=== PATIENT | female | born 1940 | race Caucasian/White ===

== ENCOUNTER 2019-02-21 17:23 | Inpatient (IN) | payer MEDICARE, OTHER ==
[~2019-02-21] VITALS: Ht 165.1 cm; Wt 47.7 kg
[2019-02-21 18:19] LABS: BASOPHILS 0.1 % (0-2); EOSINOPHILS 0.1 % (0-7); HEMATOCRIT 43.6 % (36.0-48.0); HEMOGLOBIN 14.4 g/dL (12-16); IMMATURE GRANULOCYTES 0.2 % (0-5); LYMPHOCYTES 9.1 % (15-50); MCH 31.2 pg (26.0-34.0); MCV 94.6 fL (80.0-100.0); MONOCYTES 5.1 % (2-11); NEUTROPHILS 85.4 % (40-80); PLATELET COUNT 245 10x3/uL (130-400); RBC 4.61 10x6/uL (4.00-5.40); RDW 14.1 % (11.5-14.5); WBC 10.9 10x3/uL (4.8-10.8)
[2019-02-21 18:32] LABS: INR 1.12 (0.85-1.17); PROTIME 13.9 SECONDS (11.6-15.0)
[2019-02-21 18:40] LABS: ALBUMIN 3.4 g/dL (3.4-5.0); ALKALINE PHOSPHATASE 50 U/L (46-116); ALT (SGPT) 20 U/L (10-68); BILIRUBIN - TOTAL 0.68 mg/dL (0.2-1.3); CALC OSMOLALITY 287 mosm/kg (275-300); CALCIUM 8.4 mg/dL (8.5-10.1); CARBON DIOXIDE 30.3 mmol/L (21.0-32.0); CHLORIDE - SERUM 106 mmol/L (98-107); CREATININE - SERUM 0.6 mg/dL (0.6-1.3); GLUCOSE 116 mg/dL (74-106); PROTEIN - SERUM 6.4 g/dL (6.4-8.2); SODIUM 143 mmol/L (136-145); UREA NITROGEN 18 mg/dL (7-18); eGFR NON AFRICAN AMERICAN > 90 mL/min (90-120)
--- NOTE | 2019-02-21 19:47 | NUR ---
RECEIVED CALL FROM ANESTHESTIA THAT HE WAS EN ROUTE AND SURGERY WOULD BE PERFORMED TONIGHT. PATIENT NOT TO FLOOR YET. INSTRUCTED TO CALL ER.
--- NOTE | 2019-02-21 19:58 | NUR ---
PATIENT TO FLOOR. NO CONSENTS SIGNED. NO HIBBA CLEANSE PERFOMRED. WAS ABLE TO OBTAIN CONSENTS. ANESTHESIA CURRENTLY IN ROOM SPEAKING WITH PATIENT AND FAMILY. SPOKE WITH ANESTHESIA THAT HIBBA CLEANSE NOT PERFORMED YET. ANESTHESIA STATING UNDERSTANDING.
--- NOTE | 2019-02-21 20:10 | NUR ---
ADMINISTERED MORPHINE FOR PAIN CONTROL. HIBBA CLEANSE PERFORMED.
--- NOTE | 2019-02-21 20:28 | NUR ---
PRE OP MEDS ADMINISTERED
--- NOTE | 2019-02-21 20:32 | NUR ---
PATIENT LEFT FLOOR WITH SURGERY TEAM
[2019-02-22] VITALS (13 sets, daily range): BP systolic 117–187; BP diastolic 48–75; Ht 165.1 cm; Wt 47.7 kg
--- NOTE | 2019-02-22 00:15 | NUR ---
RECEIVED PATIENT BACK FROM SURGERY. POST OP VITALS ASSESSED AND CURRENTLY STABLE. PATIENT WET. CHANGED BED AND ADDED KRISTYN ALARM. SCD TO THE RIGHT LEG AND PLEXI PULSE TO THE LEFT FOOT. LEFT ARM IS IN SLING. FOREARM/WRIST AREA IS WRAPPED WITH ACD BANDAGE. FINGERS WARM TO TOUCH AND CAPILLARY REFILL LESS THAN 3 SECONDS. LEFT HIP HAS BANDAGE THAT IS CLEAN DRY AND INTACT. PLACED A PUREWICK EXTERNAL CATHETER TO PATIENT. PATIENT STATES PAIN IS TOLERABLE. CURRENTLY ON 3L O2 VIA NASAL CANNULA. INCENTIVE SPIROMETER. WILL EDUCATE PATIENT ON USE WHEN LESS DROWSY. LEFT LOWER EXTREMETY IS WARM TO TOUCH WITH PALPABLE PULSES. CALL LIGHT IN REACH. SLEEPING WHEN LEAVING THE ROOM.
[2019-02-22 06:13] LABS: BASOPHILS 0.1 % (0-2); EOSINOPHILS 0 % (0-7); HEMOGLOBIN 12.7 g/dL (12-16); IMMATURE GRANULOCYTES 0.4 % (0-5); LYMPHOCYTES 4.1 % (15-50); MCH 30.8 pg (26.0-34.0); MCHC 31.8 g/dL (31.0-37.0); MEAN PLATELET VOLUME 10.5 fL (7.4-10.4); MONOCYTES 4.6 % (2-11); NEUTROPHILS 90.8 % (40-80); PLATELET COUNT 219 10x3/uL (130-400); RBC 4.12 10x6/uL (4.00-5.40); RDW 14.3 % (11.5-14.5)
[2019-02-22 06:19] LABS: MCV 97.1 fL (80.0-100.0); WBC 16.9 10x3/uL (4.8-10.8)
[2019-02-22 06:21] LABS: INR 1.13 (0.85-1.17)
[2019-02-22 06:30] LABS: CALC OSMOLALITY 292 mosm/kg (275-300); CALCIUM 7.9 mg/dL (8.5-10.1); CARBON DIOXIDE 29.4 mmol/L (21.0-32.0); CHLORIDE - SERUM 109 mmol/L (98-107); CREATININE - SERUM 0.5 mg/dL (0.6-1.3); GLUCOSE 103 mg/dL (74-106); MAGNESIUM - SERUM 1.7 mg/dL (1.8-2.4); PHOSPHOROUS 3.4 mg/dL (2.5-4.9); POTASSIUM - SERUM 4.3 mmol/L (3.5-5.1); SODIUM 146 mmol/L (136-145); UREA NITROGEN 19 mg/dL (7-18); eGFR NON AFRICAN AMERICAN > 90 mL/min (90-120)
--- NOTE | 2019-02-22 07:37 | OP ---
PATIENT NAME: LYUBOV BARKER MEDICAL RECORD: [id number] :42 LOCATION:D.MS [id number] ADMISSION DATE:02/21/19 SURGEON: ODELL QUEEN DO DATE OF OPERATION: 02/21/2019 PROCEDURE PERFORMED: Left distal radius open reduction internal fixation and left total hip arthroplasty. PREOPERATIVE DIAGNOSIS: Displaced left distal radius fracture, extraarticular and a left displaced femoral neck fracture. POSTOPERATIVE DIAGNOSIS: Displaced left distal radius fracture, extraarticular and a left displaced femoral neck fracture. INDICATIONS: Ms. Barker is a 78-year-old female who fell this morning onto her left side. She fractured femoral neck and her distal radius. She was splinted and taken to our ER transferred from another one. The patient was informed that she had the 2 fractures and informed of the risks and benefits of left total hip and left distal radius ORIF as well as weightbearing status and the risks of infection, bleeding, damage to nerves and vessels, leg length discrepancy, fracture, need for further surgery, blood clots, and even , malunion, nonunion of the distal radius as well and she signed the consent. SURGEON: Odell Qeuen DO DESCRIPTION OF PROCEDURE: The patient received block by anesthesia in the preoperative area, taken to the operative suite, laid in supine position, given general anesthetic and LMA was placed. Two grams Ancef were given to the patient and the left upper extremity was then prepped and draped in sterile fashion and a timeout was performed. Everyone was in agreement with the correct side, site, patient, and procedure. The incision was then made over flexor carpi radialis tendon. Careful dissection was made down to the fracture. Fracture was reduced. A pin was placed from the radial styloid into the radius holding the fracture in place. The Biomet distal radius plate was then placed on and pinned in place. This was confirmed to be in good position on AP and lateral and then distal screws were put in locking screws and then proximally as well in the shaft, 2 of the screws appeared to be a little long and exchanged out, then this tourniquet had been used. The upper extremity was exsanguinated in Esmarch was up for 31 minutes and let down at that time, the bleeding was coagulated. The skin was then irrigated. The wound was irrigated. Skin was closed with 3-0 Vicryl in interrupted fashion. Prineo glue placed on the skin. Adaptic, 4 x 4s, ABD, Webril, and a 3 x 12 volar splint was placed and secured with an Hans wrap. She was then moved down on the [place] table and the left hip was prepped and draped in sterile fashion. The timeout had been performed. The incision began over the tensor fascia ana m. Careful dissection was made down and the fascia was taken superiorly. The muscle belly posteriorly and the interval between the rectus was opened, the ascending branch of lateral femoral circumflex was tied off and coagulated with the Aquamantys and then cut. The capsule was then cleared off and the capsulotomy was performed. The capsule was tagged. The femoral neck was then cut as there was a subcapital fracture. The femoral head was then removed as well as the labrum and the pulvinar and reaming began and reamed up to a 50. Osteotomes cup was then impacted into place and I was very secure as confirmed on AP pelvis x-ray. The liner was then impacted and the femur was then exposed and then broaching. First canal finder was used and the ONOFFMIX (?) cutter and broaching began up to a 10. This was trialled and OPERATIVE REPORT [id number] BRIDGES,LYUBOV need to get a little more lateral and the neck cut was good as well as the size of a -3 neck. We then dislocated the hip and broached a little more lateral. A 13 Taperloc stem was put in high offset with a 28 Biolox ceramic head with a dual mobility and a -3 neck. The hip was then reduced and appeared to be equal lengths on the AP pelvis and no fracture seen in the femoral stem and the femoral shaft rather from the stem. The wound was then thoroughly irrigated. The capsule was then closed with #2 Ethibond that had been tagged. The Surgicel powder, vancomycin and tobramycin powder were then placed in the wound. The tensor fascia ana m fascia was then closed with #1 Vicryl running locking stitch. Skin was closed with 2-0 Vicryl in inverted interrupted fashion, 4-0 Monocryl in the skin and a Prineo placed on the skin and then covered with Telfa and Tegaderm. The patient was then awakened and taken to recovery in stable condition. Blood loss approximately 300 mL. COMPLICATIONS: None. TRANSINT:[id number] Voice Confirmation ID: [id number] DOCUMENT ID: [id number] ODELL QUEEN DO at 0737 CC: [id number] DICTATION DATE: 02/21/19 235 PRODUCT DEVELOPMENT ENGINEER: 02/22/19 0736 ADM IN [facility] [address] [id number]
--- NOTE | 2019-02-22 10:27 | NUR ---
PT RESTING IN CHAIR. NO SIGNS OF DISTRESS. IV TO RIGHT FORARM PATENT NO REDNESS OR TENDERNESS. HAS INCISION TO LEFT HIP DRESSING INTACT AND INCISION TO LEFT WRIST DRESSING INTACT. COMPLAINS OF PAIN. MEDICATIONS GIVEN. DENIES ANY FURTHER NEED AT THIS TIME. CALL LIGHT IN REACH. BED LOW POSITION. FAMILY AT BEDSIDE.
--- NOTE | 2019-02-22 12:41 | NUR ---
REHAB PRESCREEN THIS PATIENT WILL MAKE A GOOD CANIDATE FOR IRF. CURRENTLY POD#1 AND NO THERPAY HAS BEEN STARTED. WILL MONITOR HER PROGRESS AND FOLLOW UP WHEN READY FOR DISCHARGE. THANK YOU FOR THIS EVAL. ZAFAR VARELA LPN CLINICAL LIASION
--- NOTE | 2019-02-22 13:04 | MORECARE ---
CASE MANAGEMENT DISCHARGE SUMMARY PATIENT: LYUBOV BARKER UNIT: [id number] ADM DATE: 02/21/19 AGE: 78 : 41 SEX: F ROOM/BED: D.2233 AUTHOR: GIOVANY,DOC PHYSICIAN: REFERRING PHYSICIAN: BRAYDEN FERRO MD DATE OF SERVICE: 02/22/19 Discharge Plan Patient Name: LYUBOV BARKER Facility: [facility]:[place] : 1940 Planned Disposition: Anticipated Discharge Date: 02/24/19 Discharge Date: Expected LOS: 3 Initial Reviewer: [email or web address] Initial Review Date: 02/21/2019 Generated: 02/22/19 2:04 pm Comments DCP- Discharge Planning Updated by [id number]: Maura Cooley on 02/22/19 12:[address] DC PLAN: Referral Pending with Acute [place] Rehab at . ANTICIPATED DC NEEDS: Rehab CM met with patient to complete initial dc planning assessment. CM educated patient on the CM role and verbal consent given by patient to complete assessment. CM verified patient's address, phone number, and emergency contact phone numbers. Patient lives at home with her . She was independent in her care prior to her fall. At discharge patient would like to go to [place] rehab at or at [facility]. JAMES presented, signed by patient for Acute Rehab at or [facility] and a second choice for [place] if not accepted to [place] rehab. Patient denied further known discharge needs at this time. CM will continue to follow and will assist as needed with dc plans/needs. Maura Cooley RN, [facility] DCPIA - Discharge Planning Initial Assessment Updated by [email or web address]: Maura Cooley on 02/22/19 12:59 pm * Is the patient Alert and Oriented? Yes * How many steps to enter\exit or inside your home? One * PCP Does not have a PCP * Pharmacy [facility] [address] * Preadmission Environment Home with Family * ADLs Independent * Equipment Cane Rolling Walker * List name and contact numbers for known caregivers / representatives who currently or will assist patient after discharge: Jessenia Barker - daughter- [phone] * Verbal permission to speak to the caregivers and representatives has been obtained from the patient. Yes * Community resources currently utilized None * Additional services required to return to the preadmission environment? No * Can the patient safely return to the preadmission environment? Yes * Has this patient been hospitalized within the prior 30 days at any hospital? No Patient Name: LYUBOV BARKER Page [phone] at 1304 All edits/amendments must be made on the electronic document DICTATION DATE: 02/22/19 130 ROTARY FILTER OPERATOR: EMILIANO 02/22/19 1304 RPT#: [id number] DC DATE: STATUS: ADM IN [facility] [address] [place] [address] END OF REPORT
--- NOTE | 2019-02-22 13:14 | NUR ---
LYING IN BED,WITHOUT SIGNS OF DISTRESS
[2019-02-22 17:27] LABS: APPEARANCE CLEAR (CLEAR); BILIRUBIN NEGATIVE (NEGATIVE); COLOR YELLOW (YELLOW); GLUCOSE NEGATIVE (NEGATIVE); KETONE NEGATIVE (NEGATIVE); NITRITE POSITIVE (NEGATIVE); PROTEIN TRACE mg/dL (NEGATIVE); UROBILINOGEN NORMAL (NORMAL)
[2019-02-22 17:29] LABS: BACTERIA MODERATE /hpf (NEGATIVE); RED CELLS - URINE 0-5 /hpf (0-5)
--- NOTE | 2019-02-22 20:00 | NUR ---
A/O WITH NO SIGNS OF ACUTE DISTRESS. DRESSING TO THE LEFT HAND AND HIP. EXTREMETIES WARM WITH PULSE NOTED. WAS NOTIFIED AT CHANGE OF SHIFT TO PLACE SAHU. IV TO THE RT FOREARM WITH NO REDNESS OR SWELLING NOTED. DENIES ANY NEEDS AT THIS TIME. CONTINUE WITH PLAN OF CARE.
[2019-02-23] VITALS: BP 152/67
--- NOTE | 2019-02-23 02:11 | NUR ---
ATTEMPED TO PLACE SAHU X6 ALL THROUGHOUT NIGNT. CALLED ICU FOR SAHU PLACEMENT. ICU NURSE PLACED SAHU UPON FIRST ATTEMPT. REMOVED 820 ML OF URINE. WILL CONTINUE TO MONITOR.
[2019-02-23 04:00] VITALS: BP 143/68
[2019-02-23 06:02] LABS: BASOPHILS 0.1 % (0-2); EOSINOPHILS 0.2 % (0-7); HEMATOCRIT 35.7 % (36.0-48.0); HEMOGLOBIN 11.6 g/dL (12-16); IMMATURE GRANULOCYTES 0.2 % (0-5); LYMPHOCYTES 11.8 % (15-50); MCH 30.5 pg (26.0-34.0); MCHC 32.5 g/dL (31.0-37.0); MEAN PLATELET VOLUME 10.6 fL (7.4-10.4); MONOCYTES 6.7 % (2-11); PLATELET COUNT 226 10x3/uL (130-400)
[2019-02-23 06:03] LABS: MCV 93.9 fL (80.0-100.0); WBC 9.1 10x3/uL (4.8-10.8)
[2019-02-23 06:14] LABS: CHLORIDE - SERUM 102 mmol/L (98-107); CREATININE - SERUM 0.5 mg/dL (0.6-1.3); GLUCOSE 102 mg/dL (74-106); SODIUM 137 mmol/L (136-145); eGFR NON AFRICAN AMERICAN > 90 mL/min (90-120)
[2019-02-23 06:16] LABS: CALC OSMOLALITY 272 mosm/kg (275-300); POTASSIUM - SERUM 3.4 mmol/L (3.5-5.1); UREA NITROGEN 9 mg/dL (7-18)
[2019-02-23 07:59] VITALS: BP 117/64
--- NOTE | 2019-02-23 08:00 | NUR ---
LYING IN BED,WITHOUT NEEDS
[2019-02-23 14:17] VITALS: BP 120/68; BP 121/69
--- NOTE | 2019-02-23 15:38 | NUR ---
PT RESTING IN BED. NO SIGNS OF DISTRESS. IV TO RIGHT HAND PATENT NO REDNESS OR TENDERNESS. HAS INCISION TO LEFT HIP AND LEFT WRIST. DRESSING CLEAN AND INTACT. DENIES ANY FURTHER NEED AT THIS ITME. CALL LIGHT IN REACH. BED LOW POSITION. FAMILY AT BEDSIDE.
--- NOTE | 2019-02-23 19:30 | NUR ---
PATIENT ALERT AND ORIENTED. HOB ELEVATED TO 45 DEGREE ANGLE AT THIS TIME. PATIENT REQUESTED BOOST IN BED AND READJUSTMENT. ASSISTED PATIENT. LEFT HIP DRESSING REMAINS CLEAN, DRY, AND INTACT. PATIENT HAD ICE PACK ON DRESSING BUT STATES SHE NO LONGER NEEDS IT AT THIS TIME. REMOVED AND DISPOSED OF. PATIENT ALSO HAS AIDA BANDAGE TO THE LEFT WRIST THAT IS CLEAN DRY AND INTACT. NO SLING ON AT THIS TIME. PATIENT STATES PAIN IS MINIMAL AND DENIES PAIN MEDICINE AT THIS TIME. PATIENT HAS A PLEXI PULSE TO THE LEFT FOOT AND AN SCD TO THE LEFT LEG. CURRENTLY HAS A RIGHT HAND IV THAT IS PATENT AND INFUSING HALF NORMAL SALINE AT 50. PATIENT IS CURRENTLY WEARING 2L VIA NASAL CANNULA. DENIES FURTHER NEEDS AT THIS TIME. CALL LIGHT IN REACH OF PATIENT. CPOC.
[2019-02-23 20:00] VITALS: BP 142/61
[2019-02-24] VITALS: BP 128/55
--- NOTE | 2019-02-24 03:41 | NUR ---
I have reviewed this patient and I concur with the Shift Assessment completed by the Licensed Practical Nurse today this shift.
[2019-02-24 04:00] VITALS: BP 130/59
[2019-02-24 05:34] LABS: BASOPHILS 0.1 % (0-2); EOSINOPHILS 0.7 % (0-7); HEMATOCRIT 32.9 % (36.0-48.0); HEMOGLOBIN 10.6 g/dL (12-16); IMMATURE GRANULOCYTES 0.1 % (0-5); LYMPHOCYTES 13.9 % (15-50); MCH 30.3 pg (26.0-34.0); MCHC 32.2 g/dL (31.0-37.0); MEAN PLATELET VOLUME 11.2 fL (7.4-10.4); MONOCYTES 7.3 % (2-11); NEUTROPHILS 77.9 % (40-80); PLATELET COUNT 229 10x3/uL (130-400); RDW 13.7 % (11.5-14.5)
[2019-02-24 06:00] LABS: CALC OSMOLALITY 275 mosm/kg (275-300); CALCIUM 8.4 mg/dL (8.5-10.1); CARBON DIOXIDE 30.7 mmol/L (21.0-32.0); CHLORIDE - SERUM 103 mmol/L (98-107); CREATININE - SERUM 0.4 mg/dL (0.6-1.3); GLUCOSE 95 mg/dL (74-106); POTASSIUM - SERUM 3.7 mmol/L (3.5-5.1); SODIUM 139 mmol/L (136-145); UREA NITROGEN 7 mg/dL (7-18); eGFR NON AFRICAN AMERICAN > 90 mL/min (90-120)
--- NOTE | 2019-02-24 07:43 | NUR ---
RESTING IN BED WITH EYES OPEN, ALERT AND ORIENTED W/ NO S/S OF DISTRESS NOTED AT THIS TIME. IV LOCATED TO RIGHT HAND CURRENTLY RUNNING 1/2NS @ 50ML/HR. CURRENTLY RCVING 2L VIA NC. SAHU CATHETER PRESENT PUTTING OUR CLEAR YELLOW URINE. DENIES NEEDS, WILL CONT TO MONITOR.
[2019-02-24 08:36] VITALS: BP 140/69
[2019-02-24] MEDS ORDERED: ELIQUIS2.5 MG PO (10:28)
[2019-02-24] MEDS ORDERED: HYDROCODON-ACE1 EAC7 PO (10:28)
[2019-02-24] MEDS ORDERED: ACETAMINOPHEN325 MG PO (10:28)
[2019-02-24] MEDS ORDERED: Senokot-S Tablet PO (10:28)
[2019-02-24] MEDS ORDERED: ROCEPHIN 1 GM/D51 G1 IV (10:28)
[2019-02-24] MEDS ORDERED: HYDROCODON-ACE1 EA10 PO (10:28)
[2019-02-24] MEDS ORDERED: FLORAJEN3 CAPS460 MG PO (10:28)
[2019-02-24] MEDS ORDERED: PROTONIX40 MG PO (10:29)
--- NOTE | 2019-02-24 10:46 | MORECARE ---
CASE MANAGEMENT DISCHARGE SUMMARY PATIENT: LYUBOV BARKER UNIT: [id number] ADM DATE: 02/21/19 AGE: 78 : 41 SEX: F ROOM/BED: D.2233 AUTHOR: GIOVANYDOC PHYSICIAN: REFERRING PHYSICIAN: BRAYDEN FERRO MD DATE OF SERVICE: 02/24/19 Discharge Plan Patient Name: LYUBOV BARKER Facility: [facility]:[place] : 1940 Planned Disposition: Anticipated Discharge Date: 02/24/19 Discharge Date: Expected LOS: 3 Initial Reviewer: [email or web address] Initial Review Date: 02/21/2019 Generated: 02/24/19 11:45 am Comments DCP- Discharge Planning Updated by [email or web address]: Mary Arnold on 02/24/19 9:[address] Patient Name: LYUBOV BARKER Encounter No: [id number] : 1940 Primary Insurance: MEDICARE A & B Anticipated DC Date: 02-24-2019 Planned Disposition: External Planned Provider: : DCP follow-up note: Patient and family in agreement with discharge plan. No changes to plan. Agrees to discharge today to inpatient rehab at [facility]. Case management will follow and assist as needed. Mary Arnold DCP- Discharge Planning Updated by [email or web address]: Maura Cooley on 02/22/19 12:[address] DC PLAN: Referral Pending with Acute [place] Rehab at . ANTICIPATED DC NEEDS: Rehab CM met with patient to complete initial dc planning assessment. CM educated patient on the CM role and verbal consent given by patient to complete assessment. CM verified patient's address, phone number, and emergency contact phone numbers. Patient lives at home with her . She was independent in her care prior to her fall. At discharge patient would like to go to [place] rehab at or at [facility]. JAMES presented, signed by patient for Acute Rehab at or [facility] and a second choice for [place] if not accepted to [place] rehab. Patient denied further known discharge needs at this time. CM will continue to follow and will assist as needed with dc plans/needs. Maura Cooley RN, [facility] DCPIA - Discharge Planning Initial Assessment Updated by [email or web address]: Maura Cooley on 02/22/19 12:59 pm * Is the patient Alert and Oriented? Yes * How many steps to enter\exit or inside your home? One * PCP Does not have a PCP * Pharmacy [facility] [address] * Preadmission Environment Home with Family * ADLs Independent * Equipment Cane Rolling Walker * List name and contact numbers for known caregivers / representatives who currently or will assist patient after discharge: Jessenia Barker - daughter- [phone] * Verbal permission to speak to the caregivers and representatives has been obtained from the patient. Yes * Community resources currently utilized None * Additional services required to return to the preadmission environment? No * Can the patient safely return to the preadmission environment? Yes * Has this patient been hospitalized within the prior 30 days at any hospital? No Last DP export: 02/22/19 12:04 Patient Name: LYUBOV BARKER Page [phone] at 1046 All edits/amendments must be made on the electronic document DICTATION DATE: 02/24/191044 BALANCE BRIDGE ASSEMBLER: EMILIANO 02/24/191044 RPT#: [id number] DC DATE: STATUS: ADM IN [facility] [address] [place] [address] END OF REPORT
--- NOTE | 2019-02-24 11:12 | NUR ---
DRESSING CHANGED TO LEFT HIP.
--- NOTE | 2019-02-25 15:31 | MORECARE ---
CASE MANAGEMENT DISCHARGE SUMMARY PATIENT: LYUBOV BARKER UNIT: [id number] ADM DATE: 02/21/19 AGE: 79 : 41 SEX: F ROOM/BED: D.2233 AUTHOR: GIOVANY,DOC PHYSICIAN: REFERRING PHYSICIAN: BRAYDEN FERRO MD DATE OF SERVICE: 02/25/19 Discharge Plan Patient Name: LYUBOV BARKER Facility: [facility]:[place] : 1940 Planned Disposition: Anticipated Discharge Date: 02/24/19 Discharge Date: 02/24/2019 Expected LOS: 3 Initial Reviewer: [email or web address] Initial Review Date: 02/21/2019 Generated: 02/25/19 4:30 pm Comments DCP- Discharge Planning Updated by [email or web address]: Mary Arnold on 02/24/19 9:[address] Patient Name: LYUBOV BARKER Encounter No: [id number] : 1940 Primary Insurance: MEDICARE A & B Anticipated DC Date: 02-24-2019 Planned Disposition: External Planned Provider: : DCP follow-up note: Patient and family in agreement with discharge plan. No changes to plan. Agrees to discharge today to inpatient rehab at [facility]. Case management will follow and assist as needed. Mary Arnold DCP- Discharge Planning Updated by [email or web address]: Maura Cooley on 02/22/19 12:[address] DC PLAN: Referral Pending with Acute [place] Rehab at . ANTICIPATED DC NEEDS: Rehab CM met with patient to complete initial dc planning assessment. CM educated patient on the CM role and verbal consent given by patient to complete assessment. CM verified patient's address, phone number, and emergency contact phone numbers. Patient lives at home with her . She was independent in her care prior to her fall. At discharge patient would like to go to [place] rehab at or at [facility]. JAMES presented, signed by patient for Acute Rehab at or [facility] and a second choice for [place] if not accepted to [place] rehab. Patient denied further known discharge needs at this time. CM will continue to follow and will assist as needed with dc plans/needs. Maura Cooley RN, [facility] DCPIA - Discharge Planning Initial Assessment Updated by [email or web address]: Maura Cooley on 02/22/19 12:59 pm * Is the patient Alert and Oriented? Yes * How many steps to enter\exit or inside your home? One * PCP Does not have a PCP * Pharmacy [facility] [address] * Preadmission Environment Home with Family * ADLs Independent * Equipment Cane Rolling Walker * List name and contact numbers for known caregivers / representatives who currently or will assist patient after discharge: Jessenia Barker - daughter- [phone] * Verbal permission to speak to the caregivers and representatives has been obtained from the patient. Yes * Community resources currently utilized None * Additional services required to return to the preadmission environment? No * Can the patient safely return to the preadmission environment? Yes * Has this patient been hospitalized within the prior 30 days at any hospital? No Last DP export: 02/24/19 9:45 Patient Name: LYUBOV BARKER Page [phone] at 1531 All edits/amendments must be made on the electronic document DICTATION DATE: 02/25/191529 SIEBEL CRM DEVELOPER: EMILIANO 02/25/191529 RPT#: [id number] DC DATE:02/24/19 STATUS: DIS IN [facility] [address] [place] [address] END OF REPORT
== END 2019-02-24 16:16 | DRG 469 ==
LOC: D.ER 17:23 → D.MS 19:15
PROVIDERS: Family Medicine; Orthopaedic Surgery; ADMIT Internal Medicine Nephrology; ATTEND Internal Medicine Nephrology
PROC: 0PSJ04Z Reposition Left Radius with Internal Fixation Device, Open Approach (ICD-10-PCS; principal; 2019-02-21 20:30)
PROC: 0SRB0J9 Replacement of Left Hip Joint with Synthetic Substitute, Cemented, Open Approach (ICD-10-PCS; 2019-02-21 20:30)
DX: S52.552A Other extraarticular fracture of lower end of left radius, initial encounter for closed fracture (principal); S72.002A Fracture of unspecified part of neck of left femur, initial encounter for closed fracture; N39.0 Urinary tract infection, site not specified; W19.XXXA Unspecified fall, initial encounter; Y92.009 Unspecified place in unspecified non-institutional (private) residence as the place of occurrence of the external cause; E83.42 Hypomagnesemia

== ENCOUNTER 2019-02-24 15:48 | Inpatient (IN) | payer MEDICARE, OTHER ==
[~2019-02-24] VITALS: Ht 165.1 cm; Wt 47.6 kg
[~2019-02-24 15:48] MED LIST: ACETAMINOPHEN325 MG PO; ELIQUIS2.5 MG PO; FLORAJEN3 CAPS460 MG PO; HYDROCODON-ACE1 EA10 PO; HYDROCODON-ACE1 EAC7 PO; PROTONIX40 MG PO; ROCEPHIN 1 GM/D51 G1 IV; Senokot-S Tablet PO
[2019-02-24 16:30] VITALS: BP 128/58; BMI 17.5
--- NOTE | 2019-02-24 19:49 | NUR ---
PATIENT RECEIVED SITTING UP IN BED WATCHING TV. ASSESSMENT & VITAL SIGNS DONE. NO C/O PAIN OR DISTRESS. BED LOW. CALL LIGHT WITHIN REACH. WILL CONTINUE TO MONITOR.
[2019-02-24 20:47] VITALS: BP 128/58
--- NOTE | 2019-02-24 20:48 | NUR ---
PATIENT C/O LEFT HIP PAIN LEVEL 3. PATIENT GIVEN PAIN MEDICATION PER ORDER. CALL LIGHT WITHIN REACH. WILL CONTINUE TO MONITOR.
--- NOTE | 2019-02-24 21:53 | NUR ---
PATIENT PAIN LEVEL O. PAIN MEDICATION EFFECTIVE.
--- NOTE | 2019-02-25 02:32 | NUR ---
PATIENT AWAKE. RESPIRATIONS 18 & EVEN. NO PAIN OR DISTRESS AT THIS TIME. BED LOW. ALARM ON. CALL LIGHT WITHIN REACH. SAHU CATHETER CLAMPED & UNCLAMPED PER PROTOCOL CONTINUES. PATIENT TOLERATING IT WELL. BED LOW. WILL CONTINUE TO MONITOR.
--- NOTE | 2019-02-25 03:32 | NUR ---
I have reviewed this patient and I concur with the Shift Assessment completed by the Licensed Practical Nurse today this shift.
--- NOTE | 2019-02-25 06:35 | NUR ---
PATIENT SAHU BAG EMPTIED OF 1000 ML. SAHU THEN REMOVED. PATIENT RELIEVED IT WAS OUT. TOLERATED REMOVAL WELL. CALL LIGHT WITHIN REACH. WILL CONTINUE TO MONITOR.
--- NOTE | 2019-02-25 08:00 | NUR ---
SHIFT ASSMT COMPLETED
[2019-02-25 08:22] VITALS: BP 133/57
[2019-02-25 14:07] VITALS: Ht 165.1 cm; Wt 47.6 kg
--- NOTE | 2019-02-25 16:00 | NUR ---
WILL CONT TO MONITOR
--- NOTE | 2019-02-25 20:00 | NUR ---
PATIENT RECEIVED SITTING UP IN BED WATCHING TV. ASSESSMENT & VITAL SIGNS DONE. BED LOW. CALL LIGHT WITHIN REACH. ALARM ON. WILL CONTINUE TO MONITOR.
[2019-02-25 20:37] VITALS: BP 107/51
--- NOTE | 2019-02-26 02:14 | NUR ---
I have reviewed this patient and I concur with the Shift Assessment completed by the Licensed Practical Nurse today this shift.
[2019-02-26 06:56] LABS: BASOPHILS 0.1 % (0-2); EOSINOPHILS 1.2 % (0-7); HEMATOCRIT 32.5 % (36.0-48.0); HEMOGLOBIN 10.5 g/dL (12-16); IMMATURE GRANULOCYTES 0.1 % (0-5); LYMPHOCYTES 14.1 % (15-50); MCH 30.2 pg (26.0-34.0); MCHC 32.3 g/dL (31.0-37.0); MCV 93.4 fL (80.0-100.0); MEAN PLATELET VOLUME 10.1 fL (7.4-10.4); MONOCYTES 10.3 % (2-11); NEUTROPHILS 74.2 % (40-80); RBC 3.48 10x6/uL (4.00-5.40); RDW 13.6 % (11.5-14.5); WBC 6.9 10x3/uL (4.8-10.8)
[2019-02-26 07:03] LABS: PLATELET COUNT 277 10x3/uL (130-400)
[2019-02-26 07:05] LABS: CALC OSMOLALITY 281 mosm/kg (275-300); CALCIUM 8.7 mg/dL (8.5-10.1); CARBON DIOXIDE 35.4 mmol/L (21.0-32.0); CHLORIDE - SERUM 100 mmol/L (98-107); CREATININE - SERUM 0.5 mg/dL (0.6-1.3); GLUCOSE 106 mg/dL (74-106); POTASSIUM - SERUM 3.4 mmol/L (3.5-5.1); SODIUM 140 mmol/L (136-145); UREA NITROGEN 20 mg/dL (7-18); eGFR NON AFRICAN AMERICAN > 90 mL/min (90-120)
[2019-02-26 07:49] VITALS: BP 108/54
--- NOTE | 2019-02-26 16:35 | NUR ---
PATIENT IS ADMITTED TO REHAB FROM ACUTE FLOOR. AT THIS TIME SHE HAS NO PCP. SHE HAS A ROLLING WALKER AT HOME. PATIENT IS NEW TO THE UNIT AND WILL BE RA AT NEXT MEETING. HER SPOUSE ATTENDED CARE TEAM TODAY. HIS QUESTIONS AND CONCERNS WERE ADDRESSED. WILL CONTINUE TO FOLLOW WITH PATIENT.
--- NOTE | 2019-02-26 19:59 | NUR ---
PATIENT SITTING UP IN BED. ASSESSMENT & VITAL SIGNS DONE. NO C/O PAIN OR DISTRESS. BED LOW. CALL LIGHT WITHIN REACH. WILL CONTINUE TO MONITOR.
[2019-02-26 21:13] VITALS: BP 126/52
--- NOTE | 2019-02-27 02:15 | NUR ---
I have reviewed this patient and I concur with the Shift Assessment completed by the Licensed Practical Nurse today this shift.
--- NOTE | 2019-02-27 03:42 | NUR ---
PATIENT EYES CLOSED. RESPIRATIONS 18 & EVEN. BED LOW. ALARM ON. CALL LIGHT WITHIN REACH. WILL CONTINUE TO MONITOR.
--- NOTE | 2019-02-27 08:24 | NUR ---
NUTRITION F/U CHART REVIEWED, PT VISIT. PT REPORTS IMPROVING PO INTAKE. WILL PROVIDE PT WITH ADDITIONAL OPTIONS FOR MEALS. MONITOR PO INTAKE. RD FOLLOWING
[2019-02-27 09:58] VITALS: BP 127/62
--- NOTE | 2019-02-27 16:25 | NUR ---
PT RESTING IN BED WITH EYES OPEN CALL LIGHT IN REACH WILL MONITER
--- NOTE | 2019-02-27 16:29 | NUR ---
I have reviewed this patient and I concur with the Shift Assessment completed by the Licensed Practical Nurse today this shift.
--- NOTE | 2019-02-27 17:15 | NUR ---
PT RESTING IN BED WITH EYES OPEN CALL LIGHT IN REACH WILL MONITER
--- NOTE | 2019-02-27 19:10 | NUR ---
GREETED PATIENT AND INTRODUCED MYSELF HER NURSE. PATIENT IS LAYING IN BED WATCHING TV AT THIS TIME. RESPIRATIONS EVEN. NO S/S OF DISTRESS. STATES THAT PAIN IS 1/10 ON LEFT LEG. DENIES NO FURTHER NEEDS AT THIS TIME. CALL LIGHT IN REACH.
[2019-02-27 19:40] VITALS: BP 132/61
--- NOTE | 2019-02-28 00:47 | NUR ---
PT. RESTING QUIETLY WITH EYES CLOSED. RESPIRATIONS EVEN. NO S/S OF DISTRESS. SR UP X 2. BED IN LOWEST POSITION. CALL LIGHT IN REACH.
[2019-02-28 06:01] LABS: BASOPHILS 0.2 % (0-2); EOSINOPHILS 2.1 % (0-7); HEMATOCRIT 34.6 % (36.0-48.0); HEMOGLOBIN 11.2 g/dL (12-16); IMMATURE GRANULOCYTES 0.5 % (0-5); LYMPHOCYTES 27.2 % (15-50); MCH 30.4 pg (26.0-34.0); MCHC 32.4 g/dL (31.0-37.0); MCV 93.8 fL (80.0-100.0); MEAN PLATELET VOLUME 10.2 fL (7.4-10.4); MONOCYTES 10.5 % (2-11); NEUTROPHILS 59.5 % (40-80); RBC 3.69 10x6/uL (4.00-5.40); RDW 13.6 % (11.5-14.5); WBC 6.3 10x3/uL (4.8-10.8)
[2019-02-28 06:19] LABS: CALC OSMOLALITY 279 mosm/kg (275-300); CALCIUM 8.8 mg/dL (8.5-10.1); CARBON DIOXIDE 36.3 mmol/L (21.0-32.0); CHLORIDE - SERUM 100 mmol/L (98-107); CREATININE - SERUM 0.5 mg/dL (0.6-1.3); GLUCOSE 95 mg/dL (74-106); SODIUM 140 mmol/L (136-145); UREA NITROGEN 16 mg/dL (7-18); eGFR NON AFRICAN AMERICAN > 90 mL/min (90-120)
[2019-02-28 06:21] LABS: POTASSIUM - SERUM 4.5 mmol/L (3.5-5.1)
[2019-02-28 06:30] LABS: PLATELET COUNT 392 10x3/uL (130-400)
[2019-02-28 08:00] VITALS: BP 126/63
--- NOTE | 2019-02-28 08:00 | NUR ---
PATIENT IS ALERT/ORIENT. CALL LIGHT WITHIN REACH. VOICES NO NEEDS AT THIS TIME. WILL CONTINUE WITH PLAN OF CARE
--- NOTE | 2019-02-28 08:38 | NUR ---
PATIENT REQUEST PRN PAIN MEDIATION BEFORE SHE GOES TO THERAPY FOR LEFT WRIST PAIN. GIVEN
--- NOTE | 2019-02-28 11:48 | NUR ---
PATIENT IN REHAB ROOM. WORKING WITH PHYSICAL THERAPIST. DENIES ANY PAIN/DISC AT THIS TIME.
[2019-02-28 19:46] VITALS: BP 133/61
--- NOTE | 2019-02-28 19:52 | NUR ---
PT IS RESTING IN BED WITH EYES OPEN. ALERT AND ORIENTED X 3. DENIES ACUTE PAIN OR DISCOMFORT AT THIS TIME. NO NEEDS VOICED. PT IS FRIENDLY AND COOPERATIVE WITH STAFF. SPLINT TO LEFT WRIST IS CDI. RIGHT HAND SALINE LOCK IS INTACT. NO REDNESS OR EDEMA NOTED AT THE INSERTION SITE. SR'S ARE UP X 2 IN BED. CALL LIGHT AND BEDSIDE TABLE ARE WITHIN EASY REACH.
--- NOTE | 2019-02-28 21:37 | NUR ---
PT VOICED COMPLAINT OF LEFT ELBOW PAIN LEVEL OF 6. MEDICATED PER MAR.
--- NOTE | 2019-03-01 00:10 | NUR ---
I have reviewed this patient and I concur with the Shift Assessment completed by the Licensed Practical Nurse today this shift.
--- NOTE | 2019-03-01 01:39 | NUR ---
PT ASSISTED TO THE BATHROOM WITH MIN ASSIST. NO FURTHER NEEDS VOICED.
--- NOTE | 2019-03-01 04:35 | NUR ---
PT ASSISTED TO THE BATHROOM. VOIDED WITHOUT DIFFICULTY. STOPPED AT THE SINK TO BRUSH HER TEETH INDEPENDENTLY, THEN BACK TO BED.
--- NOTE | 2019-03-01 09:10 | NUR ---
PT AM MEDS ADMINISTERED. PT DENIES NEEDS. WCTM.
[2019-03-01 19:45] VITALS: BP 126/66
--- NOTE | 2019-03-01 19:47 | NUR ---
PT IS RESTING IN BED WITH EYES OPEN. ALERT AND ORIENTED X 3. DENIES ANY PAIN OR DISCOMFORT. SHE STATES SHE WORKED HARD TODAY, BUT HAS HAD NO PAIN AT ALL. SOFT SPLINT INTACT TO LEFT WRIST. SR'S ARE UP X 2 IN BED. CALL LIGHT AND BEDSIDE TABLE ARE WITHIN EASY REACH.
--- NOTE | 2019-03-01 21:51 | NUR ---
PT RESTING IN BED WITH EYES OPEN. NO ACUTE DISTRESS NOTED.
--- NOTE | 2019-03-01 23:10 | NUR ---
I have reviewed this patient and I concur with the Shift Assessment completed by the Licensed Practical Nurse today this shift.
--- NOTE | 2019-03-02 01:08 | NUR ---
RESTING IN BED WITH EYES CLOSED. NO DISTRESS NOTED.
--- NOTE | 2019-03-02 06:05 | NUR ---
PT LYING AWAKE IN BED. NO NEEDS VOICED. TOLERATED AM MED WITHOUT DIFFICULTY.
[2019-03-02 08:00] VITALS: BP 119/50
--- NOTE | 2019-03-02 08:00 | NUR ---
SHIFT ASSMT COMPLETED.BREAKFAST TRAY GIVEN.CONTAINERS OPENED.
--- NOTE | 2019-03-02 12:00 | NUR ---
EATING LUNCH. VISITING.
[2019-03-02 19:26] VITALS: BP 97/55
--- NOTE | 2019-03-02 19:26 | NUR ---
GREETED PATIENT AND INTRODUCED MYSELF HER NURSE. PATIENT IS LAYING IN BED WATCHING TV AT THIS TIME. RESPIRATIONS EVEN. NO S/S OF DISTRESS. STATES THAT PAIN LEVEL IS 2/1O LEFT THIGH. DENIES ANY FURTHER NEEDS AT THIS TIME. CALL LIGHT IN REACH.
--- NOTE | 2019-03-03 01:03 | NUR ---
PT. RESTING QUIETLY WITH EYES CLOSED. RESPIRATIONS EVEN. NO S/S OF DISTRESS. SR UP X 2. BED IN LOWEST POSITION. CALL LIGHT IN REACH.
[2019-03-03 07:12] LABS: BASOPHILS 0.2 % (0-2); EOSINOPHILS 1.6 % (0-7); HEMATOCRIT 33.4 % (36.0-48.0); HEMOGLOBIN 10.9 g/dL (12-16); IMMATURE GRANULOCYTES 0.2 % (0-5); LYMPHOCYTES 27.9 % (15-50); MCH 30.5 pg (26.0-34.0); MCHC 32.6 g/dL (31.0-37.0); MCV 93.6 fL (80.0-100.0); MEAN PLATELET VOLUME 10.3 fL (7.4-10.4); MONOCYTES 7.7 % (2-11); NEUTROPHILS 62.4 % (40-80); RBC 3.57 10x6/uL (4.00-5.40); RDW 13.9 % (11.5-14.5)
[2019-03-03 07:20] LABS: PLATELET COUNT 506 10x3/uL (130-400)
[2019-03-03 07:46] LABS: CALC OSMOLALITY 278 mosm/kg (275-300); CALCIUM 8.8 mg/dL (8.5-10.1); CARBON DIOXIDE 32.2 mmol/L (21.0-32.0); CHLORIDE - SERUM 101 mmol/L (98-107); CREATININE - SERUM 0.6 mg/dL (0.6-1.3); GLUCOSE 105 mg/dL (74-106); POTASSIUM - SERUM 3.9 mmol/L (3.5-5.1); SODIUM 138 mmol/L (136-145); UREA NITROGEN 22 mg/dL (7-18); eGFR NON AFRICAN AMERICAN > 90 mL/min (90-120)
[2019-03-03 08:03] VITALS: BP 125/61
--- NOTE | 2019-03-03 11:58 | NUR ---
SITTING UP IN BED WAITING ON LUNCH. HAS BEEN WORKING WITH THERAPY TODAY. LUE HAS ROM TO SHOULDER. CAP REFILL < 3 SECONDS. CALL LIGHT IN REACH
--- NOTE | 2019-03-03 19:39 | NUR ---
PT IS RESTING IN BED WITH EYES OPEN. ALERT AND ORIENTED X 3. DENIES ANY PAIN OR DISCOMFORT AT THIS TIME. NO NEEDS VOICED. SHE STATED DR CHIU HAD SAID HE WAS GOING TO CHANGE HER SPLINT, BUT DID NOT. I ASSURED HER I WOULD CHECK ON THIS. VSS. SR'S ARE UP X 2 IN BED. CALL LIGHT AND BEDSIDE TABLE ARE WITHIN EASY REACH.
[2019-03-03 21:02] VITALS: BP 113/49
--- NOTE | 2019-03-03 22:03 | NUR ---
PT ASSISTED TO THE BATHROOM WITH MIN ASSIST. VOICED COMPLAINT OF LEFT HIP PAIN WITH A PAIN LEVEL OF 7. MEDICATED PER JUL.
--- NOTE | 2019-03-03 23:20 | NUR ---
QUIET HOURS. PT LYING IN BED HOB 30 DEGREES EYES CLOSED RESTING QUIETLY. CL IN REACH
--- NOTE | 2019-03-04 02:14 | NUR ---
RESTING QUIETLY IN BED WITH EYES CLOSED. RESPS ARE EVEN AND UNLABORED. NO ACUTE DISTRESS NOTED.
--- NOTE | 2019-03-04 03:29 | NUR ---
I have reviewed this patient and I concur with the Shift Assessment completed by the Licensed Practical Nurse today this shift.
[2019-03-04 07:57] VITALS: BP 131/56
--- NOTE | 2019-03-04 12:33 | NUR ---
AN ORDER FOR A PLATFORM WALKER HAS BEEN FAXED TO [facility].
[2019-03-04 20:56] VITALS: BP 122/62
--- NOTE | 2019-03-04 21:21 | NUR ---
PT RESTING IN BED. ALERT AND ORIENTED. NO SIGNS OF DISTRESS. BREATHING EVEN AND UNLABORED. PT STATES NO PROBLEMS AT THIS TIME. LT WRIST CAST CLEAN DRY AND INTACT. SKIN CLEAN DRY AND INTACT. LUNG SOUNDS CLEAR. BOWEL SOUNDS ACTIVE. LT HIP INCISION CLEAN DRY AND INTACT. WILL CONTINUE PLAN OF CARE. CALL LIGHT IN REACH. BED LOWERED AND LOCKED. BED RAILS UPX2.
--- NOTE | 2019-03-05 00:06 | NUR ---
QUIET HOURS. PT LYING IN BED EYES CLOSED RESTING QUIETLY. NO SIGNS OF ACUTE DISTRESS NOTED. CL IN REACH
[2019-03-05] MEDS ORDERED: HYDROCODON-ACE1 EA10 PO (06:36)
--- NOTE | 2019-03-05 06:37 | RHP ---
PATIENT: LYUBOV GUSMAN MEDICAL RECORD: [id number] ACCOUNT: [id number] LOCATION:[facility]1114 : 42 ADMISSION DATE: 02/24/19 REHABILITATION HISTORY AND PHYSICAL EXAMINATION POST ADMISSION PHYSICIAN EXAMINATION DATE OF ADMISSION: 02/24/2019. ADMITTING DIAGNOSES: Left femoral neck fracture and left distal radial fracture after a fall. HISTORY OF PRESENT ILLNESS: The patient is a 79-year-old female patient, who presented to the ED after a fall at home. She was going to the bathroom in the middle of the night. She had to go to another bathroom because her master bathroom was having the towel replaced. She became disoriented on her way back to her bed. She tripped, she talked to her spouse in the waiting reduction furnace operator and 911 or calling for help until later he decided to take her to the Emergency Room after she continued to decline. She complained of pain in her left hip and left wrist. She had tenderness in her left wrist distally. She had moderate to severe tenderness to her left hip laterally. X-rays showed a fracture of the femoral neck that was closed and an x-ray showed a distal radial fracture also. She was admitted with ortho consult. She was taken to the OR for a left distal radius open reduction internal fixation and a left total hip arthroplasty. Her postop, she was complicated by UTI that was present upon admission. She had been on IV Rocephin. She had been having urinary retention requiring an indwelling catheter. She has been having some electrolyte abnormalities also. She is on electrolyte protocol. Previously, she was independent with her ADLs and mobility without assistive device. Currently, she is mod to max assist for ADLs and mobility. She has a cast on her on left lower arm postop, a Pak cath. She is a high fall risk. She has poor balance. She wants to return back home at her prior level or better. These are all barriers to her discharge home at this time. She does definitely needs PT for increased strength, endurance, safety, transfers and gait and also functional mobility and OT for improved independence with ADLs, energy conservation, upper and lower extremity strengthening, range of motion and family training, so she can return home. COMORBIDITIES: Include left distal radial fracture, a left femoral neck fracture. She is status post a left total hip, status post an ORIF of her left wrist, hypokalemia, hypomagnesemia, urinary retention, and fall. PAST MEDICAL HISTORY: Significant for no real medical problems in the past. PAST SURGICAL HISTORY: Please see previous charts. ALLERGIES: No known drug allergies. CURRENT MEDICATIONS: Include Rocephin, she is getting a gram every day for 5 doses. She is on Floranex, Protonix 40 mg daily. She is on Senna 2 tabs daily, Eliquis 2.5 mg b.i.d., Nocatee 5/325 one tab q.4-6 hours p.r.n., Zofran p.r.n. nausea and vomiting, and Tylenol p.r.n. pain. HABITS: No current alcohol or tobacco use. FAMILY HISTORY: Noncontributory. HISTORY AND PHYSICAL [id number] LYUBOV GUSMAN SOCIAL HISTORY: The patient hopes to return back home with her and get back to her prior level of functioning. REVIEW OF SYSTEMS: GENERAL: Does complain of some weakness and fatigue. HEENT: Denies cold, cough, or congestion. CARDIOVASCULAR: Denies chest pain. PHYSICAL EXAMINATION: VITAL SIGNS: Stable, afebrile. GENERAL: A very thin female, in no acute distress, alert upon exam. HEENT: Normocephalic and atraumatic. Mucosa moist. NECK: Supple. No lymphadenopathy. LUNGS: Clear at this time with no wheeze, rhonchi or rales. HEART: Regular rate and rhythm. No murmurs, rubs or gallops. ABDOMEN: Soft, benign, and nondistended. Positive bowel sounds times 4. EXTREMITIES: Does have noted cast to her lower arm and also postop swelling that appears normal. NEUROLOGIC: She is mainly intact other than some proximal muscle weakness. LABORATORY DATA: White count is 8000, H&H of 10 and 32, and platelet count is noted to be 229. Her sodium is 139, potassium 3.7, BUN and creatinine of 7 and 0.4, and blood sugar is noted to be 95. UA showed positive nitrites and also leukocyte esterase and moderate bacteria on 02/22/2019. ASSESSMENT: This is a 79-year-old female patient admitted to the rehab with a working diagnosis of debility secondary to multiple fractures from a fall. The patient has potential to make improvement. We instituted the following multidisciplinary therapies including, but not limited to physical, occupational, respiratory, speech, nutritional services, prosthetics and orthotics. Given her complex medical condition and risks for more complications, rehabilitation services cannot be provided at a low level of care such as a fci facility. PLAN: 1. Admit to [facility] rehab for an intensive inpatient therapy to include the following disciplines: A. Physical therapy to improve gait, all transfer skills and bed mobility to a modified independent level. B. Occupational therapy to improve activities of daily living to a modified independent level. C. Case management to assist with discharge planning and placement options. D. Nutrition to assist with nutritional needs. E. Rehabilitation nursing to assist in monitoring the patient's underlying medical conditions and to assist with any type of bowel or bladder management. 2. The patient's current medication and medical care will be continued. 3. The patient will be placed on standard fall precautions. 4. The patient's estimated length of stay is approximately 7-10 days. 5. We will discuss the patient during care team staff meeting this week. We will continue on home medication where appropriate and I will see again in the a.m. TRANSINT:[id number] Voice Confirmation ID: [id number] DOCUMENT ID: [id number] HISTORY AND PHYSICAL [id number] LYUBOV GUSMAN notes whether there has been none or any medical/functional change since admission: - No change since prescreen. NADEEN attests patient continues to be appropriate for IRF: - Continues to be approrpriate. LIANE BALLARD MD at 0637 CC: [id number] DICTATION DATE: 02/25/191114 TUBE SPLICER: 02/25/19 1202 ADM IN [facility] [address] [id number]
[2019-03-05 08:08] VITALS: BP 128/55
--- NOTE | 2019-03-05 09:14 | NUR ---
PATIENT DISCHARGING HOME TODAY WITH FAMILY. [facility] WILL PROVIDE THERAPY AT HOME. [facility] DELIVERED A PLATFORM WALKER TO PATIENT. DR. QUEEN 03/11/19 @ 2:15. PATIENT CHOICE FORM AND [facility] FORMS SIGNED, COPY GIVEN TO PATIENT AND FILED IN CHART. DISCHARGE INSTRUCTIONS FAXED TO [facility] AND REVIEWED WITH PATIENT.
--- NOTE | 2019-03-05 10:20 | NUR ---
PATIENT TO BE DISCHARGE TO HOME TODAY. DR Gerard TAYLOR IN TO WRITE DISCHARGE ORDERS AND TALKED WITH PATIENT IN REGARDS TO DISCHARG
--- NOTE | 2019-03-05 10:30 | NUR ---
I have reviewed this patient and I concur with the Shift Assessment completed by the Licensed Practical Nurse today this shift.
--- NOTE | 2019-03-05 13:06 | NUR ---
IN ROOM TO TAKE PATIENT HOME. DISCHARGE INSTRUCTIONS GONE OVER WITH PATIENT. DISCHARGE MEDICATIONS CALLED INTO [facility] ON [address].
== END 2019-03-05 13:09 | disposition home health service (06) | DRG 948 ==
LOC: D.REHAB 15:48
PROVIDERS: ADMIT Emergency Medicine; ATTEND Emergency Medicine
DX: R53.81 Other malaise (principal); N39.0 Urinary tract infection, site not specified; S72.002D Fracture of unspecified part of neck of left femur, subsequent encounter for closed fracture with routine healing; S52.502D Unspecified fracture of the lower end of left radius, subsequent encounter for closed fracture with routine healing; W19.XXXD Unspecified fall, subsequent encounter; E87.6 Hypokalemia; E83.42 Hypomagnesemia; R33.9 Retention of urine, unspecified